=== PATIENT | female | born 1955 | race Asian ===

== ENCOUNTER 2025-03-04 12:40 | Emergency (ER) | payer OTHER ==
[~2025-03-04] VITALS: Ht 170.2 cm; Wt 72.0 kg
[~2025-03-04 12:40] MED LIST: LEVO125T7 PO; NEBI5TAB10 PO; PRAV20TA3 PO; VALS160T6 PO
--- NOTE | 2025-03-04 13:59 | ED.PDOC ---
HPI Allergic reaction HPI Comments 69 y/o Romansh-speaking F presents with son for c/c allergic reaction. Per son, patient endorses on developing an allergic reactions 30x minutes after being stung by a bee, while attending [employer], earlier, today. Symptoms reported include: right facial numbness, generalized hives and itchiness. Patient was reported to have been seen, evaluated, and treated with Benadryl in addition to another unnamed medication prior to being sent to ED for further workup. Patient, at time of assessment, reports feeling better and denies having any symptoms at this time. Chief Complaint: Allergic Reaction Time Seen by MD: 13:20 Reviewed Notes: Nurses Notes, Medications, Allergies Allergies: Coded Allergies: NO KNOWN ALLERGIES (Unverified , 06/20/18) Home Meds Reported Medications Pravastatin Sodium (PRAVACHOL TABLET) 20 Mg Tb, 1 TAB PO DAILY, #30 TAB 5 Refills 06/20/18 Valsartan-Hydrochlorothiazide (Diovan Hct) 160 Mg/25 Mg Tab, 1 TAB PO DAILY, #30 TAB 5 Refills 06/20/18 Nebivolol Hcl (Bystolic) 5 Mg Tab, 5 MG PO DAILY, #30 TAB 06/20/18 Levothyroxine Sodium (Levothyroxine Sodium) 125 Mcg Tab, 125 MCG PO QAM for 30 Days, MCG 06/20/18 Information Source: Patient Mode of Arrival: EMS Past Medical History PAST MEDICAL HISTORY: HTN, Thyroid Surgical History: Thyroidectomy [employer] History: Unknown Family History Family History: Unknown Social History Smoker: Non-Smoker Alcohol: Denies ETOH Use Drugs: Denies Drug Use Lives In: Home All Other Systems: Reviewed and Negative (As per HPI) Physical Exam General Appearance: No Apparent Distress, Normal HEENT: Normal ENT Inspection, Pharynx Normal, TMs Normal Neck: Full Range of Motion, Non-Tender, Normal, Normal Inspection Respiratory: Chest Non-Tender, Lungs Clear, No Accessory Muscle Use, No Respiratory Distress, Normal Breath Sounds Cardiovascular: No Edema, No JVD, No Murmur, No Gallop, Normal Peripheral Pulses, Regular Rate/Rhythm Breast Exam: Deferred Gastrointestinal: No Organomegaly, Non Tender, No Pulsatile Mass, Normal Bowel Sounds, Soft Genitalia: Deferred Pelvic: Deferred Rectal: Deferred Extremities: No calf tenderness, Normal capillary refill, Normal inspection, Normal range of motion, Non-tender, No pedal edema Musculoskeletal : Apperance: Normal Neurologic: Alert, dietary worker II-XII nml as Tested, No Motor Deficits, Normal Affect, Normal Mood, No Sensory Deficits Cerebellar Function: Normal Reflexes: Normal Skin: Dry, Normal Color, Warm Lymphatic: No Adenopathy Was a procedure done? Was a procedure done?: No Differential diagnosis (all) Differential Diagnosis: Anaphylaxis, Angioedema, Bronchospasm, Urticaria X-Ray, Labs, Meds, VS Vital Signs Date Time Temp Pulse Resp B/P (MAP) Pulse Ox O2 Delivery O2 Flow Rate FiO2 03/04/25 13:06 97.5 68 18 123/74 (90) 100 97.5 03/04/25 12:56 99.0 69 18 112/49 (70) 99 99.0 03/04/25 12:56 69 18 99 Room Air X-Ray, Labs, Meds, VS Comment This pleasant well-appearing 69-year-old female presents secondary to now resolved with the sugar reaction. The patient states she was stung by a bee earlier in the day. While driving home, she had developed increasing symptoms including swelling of her tongue and face. She was seen at urgent Care that provided her with Benadryl and Solu-Medrol. She had then transferred here. Here, the patient's symptoms resolved. She no longer had swelling to her face, mouth. She denied difficulty swallowing or breathing. She was observed for several hours continued to be asymptomatic. As such, she will be discharged home prescription for Pepcid, Medrol call my an EpiPen. Discussion with the patient and patient's son who is at bedside. They are asked to take allergy medication 1st sign of allergic reaction to include such medication as Swati or Benadryl. Patient is asked to follow up with her PCP for further workup erika paz. Time of 1ST Reevaluation: 13:50 Reevaluation 1ST: Unchanged Patient Education/Counseling: Need For Follow Up Family Education/Counseling: Need For Follow Up SEPSIS Sepsis Screen Date sepsis recognized/suspect: Mar 04, 2025 Time Sepsis recognized/suspect: 1244 Recent Procedure: No On Antibiotic Therapy: No Respiratory Rate >20: No Heart Rate >90: No Temp<36 C (96.8 F) or >38.3 C: No SBP <90 or MAP <65 mmHG: No New Acute Mental Status Change: No Is the patient on CPAP, BIPAP,: No Vital Signs Date Time Temp Pulse Resp B/P (MAP) Pulse Ox O2 Delivery O2 Flow Rate FiO2 03/04/25 13:06 97.5 68 18 123/74 (90) 100 97.5 03/04/25 12:56 99.0 69 18 112/49 (70) 99 99.0 03/04/25 12:56 69 18 99 Room Air Departure 1 Departure Time of Disposition: 14:48 Impression: Primary Impression: Anaphylaxis Disposition: 01 HOME / SELF CARE / HOMELESS Condition: Good Discharged With: Self, Relative Critical Care Note Critical Care Time?: No Stability Stability form required: No Heart Score Heart Score: Heart Score Response (Comments) Value History N/A 0 EKG N/A 0 Age N/A 0 Risk Factors N/A 0 Troponin N/A 0 Total 0 I personally scribed for JASMIN IBRAHIM MD ([email or web address]) on 03/04/25 at 13:59. Electronically submitted by Yefri Paula ([email or web address]). JASMIN IBRAHIM MD Mar 04, 2025 13:59
[2025-03-04] MEDS ORDERED: METH4PAK PO (14:50)
[2025-03-04] MEDS ORDERED: FAMO20TA10 PO (14:50)
[2025-03-04] MEDS ORDERED: EPIN0.1I11 IJ (14:50)
[2025-03-04 14:58] VITALS: BP 123/65; PULSE 70; RESP 19; TEMP 98.1; O2SAT 100
== END 2025-03-04 14:59 | disposition home or self-care (01) ==
LOC: EDBD 12:40 → ER 12:40
DX: T78.2XXA Anaphylactic shock, unspecified, initial encounter (principal); I10 Essential (primary) hypertension; Z79.899 Other long term (current) drug therapy; Z90.89 Acquired absence of other organs